=== PATIENT | female | born 2000 | race African-American/Black ===

== ENCOUNTER 2018-11-24 09:50 | Emergency (ER) | payer OTHER ==
[~2018-11-24] VITALS: Ht 157.5 cm; Wt 87.0 kg
[2018-11-24] MEDS ORDERED: LIDOCAINE HCL/PF 1% 2ML VIAL INFIL ONE (13:30)
[2018-11-24] MEDS ORDERED: LIDOCAINE HCL/PF 1% 10 MG/ML 5ML VIAL IJ NR (13:45)
[2018-11-24 14:42] VITALS: BP 113/71
== END 2018-11-24 14:45 | disposition home or self-care (01) ==
LOC: ER 09:50
DX: L02.412 Cutaneous abscess of left axilla (principal); Z98.890 Other specified postprocedural states
CPT/HCPCS: 10060; 99283; J3490